=== PATIENT | male | born 1970 ===

== ENCOUNTER 2018-07-24 09:40 | Day surgery (SDC) | payer BC ==
[~2018-07-24 09:40] MED LIST: Acetaminophen TAB* 325 MG PO PRN; Buffered Lidocaine 1% SYRIN* 1 ML/SYRINGE INTRADERM ONE
[2018-07-24] MEDS ORDERED: acetaZOLAMIDE TAB* 250 MG ONE (09:45)
[2018-07-24] MEDS ORDERED: Ketorolac 0.5% OPHTH (NF) 0.5 % 5 ML BTL ONE (09:45)
[2018-07-24] MEDS ORDERED: Proparacaine 0.5% OPHTH.SOL* 15 ML BTL ONE (09:45)
[2018-07-24] MEDS ORDERED: Phenylephrine OPHTH SOL 2.5%* 2 ML ONE (09:45)
[2018-07-24] MEDS ORDERED: Povidone Iodine 5% OPTH* 30 ML BTL ONE (09:45)
[2018-07-24] MEDS ORDERED: Lidocaine 1%* 5 ML VIAL ONE (09:45)
[2018-07-24] MEDS ORDERED: Lidocaine 2% EPI 1:200000 MPF*10-20 ML VIAL ONE (09:45)
[2018-07-24] MEDS ORDERED: Neomycin/Polymy/Dex OPTH.SUSP* MAXITROL 0.1% 5 ML ONE (09:45)
[2018-07-24] MEDS ORDERED: Cyclopentolate 1% OPTH.SOL* 2 ML BTL ONE (09:45)
[2018-07-24] MEDS ORDERED: Midazolam* 1 MG/ML 2 ML VIAL (2 MG) ONE ×2 (12:05→12:54)
[2018-07-24 13:44] VITALS: BP 133/79
--- NOTE | 2018-07-24 19:58 | OP ---
DATE OF OPERATION: 07/24/18 [facility] DATE OF : 72 SURGEON: Antwan Bettencourt M.D. PREOPERATIVE DIAGNOSIS: Cataract, left eye. POSTOPERATIVE DIAGNOSIS: Cataract, left eye. OPERATIVE PROCEDURE: Extracapsular cataract extraction with intraocular lens implant, left eye. DESCRIPTION OF PROCEDURE: The patient was brought to the operating room after being given 1/2% Alcaine with epinephrine drops in the preoperative area. The eye was prepped and draped in the usual sterile fashion. Sterile drape and eyelid speculum were placed. Again, topical 1/2% Alcaine with epinephrine was given. A paracentesis incision was made at the 3 o'clock position with the No.75 blade. Clear cornea incision 2.2 x 2.2-mm was created at the 6 o'clock position starting at the anterior limbus using the 2.2 mm keratome. The anterior chamber was irrigated with 0.4 mL of 1% non-preservative intracameral lidocaine and filled with DisCoVisc. A capsulorrhexis was completed using the cystotome and the Utrata forceps. Hydrodissection was performed with balanced salt solution. The lens nucleus was removed with the Phacoemulsification handpiece without incident. Cortex was removed with the irrigation-aspiration handpiece. The capsular bag was re-inflated using DisCoVisc and an [id number] 15.5 implant was inserted with the shooter, oriented to the 74-degree meridian. All measurements were confirmed with ORA. The irrigation-aspiration handpiece was used to remove all residual DisCoVisc. The eye was refilled with balanced salt solution and the wound checked and found to be watertight. Topical Maxitrol drops were given. [id number]/[facility] #: [id number] [facility]
== END 2018-07-24 13:40 | disposition home or self-care (01) ==
LOC: OREAST 09:40
PROVIDERS: ATTEND Specialist
DX: H25.813 Combined forms of age-related cataract, bilateral (principal); H25.13 Age-related nuclear cataract, bilateral; Z68.38 Body mass index [BMI] 38.0-38.9, adult
CPT/HCPCS: A9270-GY; J2250; V2788

== ENCOUNTER 2018-07-31 06:15 | Day surgery (SDC) | payer BC ==
[2018-07-31] MEDS ORDERED: Midazolam* 1 MG/ML 5 ML VIAL (5 MG) ONE (07:22)
[2018-07-31 08:08] VITALS: BP 141/78
[2018-07-31] MEDS ORDERED: Lidocaine 1%* 5 ML VIAL ONE (08:16)
[2018-07-31] MEDS ORDERED: Povidone Iodine 5% OPTH* 30 ML BTL ONE (08:16)
[2018-07-31] MEDS ORDERED: acetaZOLAMIDE TAB* 250 MG ONE (08:16)
[2018-07-31] MEDS ORDERED: Ketorolac 0.5% OPHTH (NF) 0.5 % 5 ML BTL ONE (08:16)
[2018-07-31] MEDS ORDERED: Phenylephrine OPHTH SOL 2.5%* 2 ML ONE (08:16)
[2018-07-31] MEDS ORDERED: Lidocaine 2% EPI 1:200000 MPF*10-20 ML VIAL ONE (08:16)
[2018-07-31] MEDS ORDERED: Proparacaine 0.5% OPHTH.SOL* 15 ML BTL ONE (08:16)
[2018-07-31] MEDS ORDERED: Neomycin/Polymy/Dex OPTH.SUSP* MAXITROL 0.1% 5 ML ONE (08:16)
[2018-07-31] MEDS ORDERED: Cyclopentolate 1% OPTH.SOL* 2 ML BTL ONE (08:16)
--- NOTE | 2018-07-31 09:30 | OP ---
DATE OF OPERATION: 07/31/18 - [facility] DATE OF : 72 SURGEON: Antwan Bettencourt M.D. PREOPERATIVE DIAGNOSIS: Cataract, right eye. POSTOPERATIVE DIAGNOSIS: Cataract, right eye. OPERATIVE PROCEDURE: Extracapsular cataract extraction with intraocular lens implant, right eye. DESCRIPTION OF PROCEDURE: The patient was brought to the operating room after being given 1/2% Alcaine with epinephrine drops in the preoperative area. The eye was prepped and draped in the usual sterile fashion. Sterile drape and eyelid speculum were placed. Again, topical 1/2% Alcaine with epinephrine was given. A paracentesis incision was made at the 9 o'clock position with the No.75 blade. Clear cornea incision 2.2 x 2.2-mm was created at the 12 o'clock position starting at the anterior limbus using the 2.2-mm keratome. The anterior chamber was irrigated with 0.4 mL of 1% non-preservative intracameral lidocaine and filled with DisCoVisc. A capsulorrhexis was completed using the cystotome and the Utrata forceps. Hydrodissection was performed with balanced salt solution. The lens nucleus was removed with the Phacoemulsification handpiece without incident. Cortex was removed with the irrigation-aspiration handpiece. The capsular bag was re-inflated using DisCoVisc and an [id number] 16.5 implant was inserted with the shooter. All measurements were confirmed with ORA. The irrigation-aspiration handpiece was used to remove all residual DisCoVisc. The eye was refilled with balanced salt solution and the wound checked and found to be watertight. Topical Maxitrol drops were given. [id number]/[facility] #: [id number] [facility]
== END 2018-07-31 08:02 | disposition home or self-care (01) ==
LOC: OREAST 06:15
PROVIDERS: ATTEND Specialist
DX: H25.811 Combined forms of age-related cataract, right eye (principal)
CPT/HCPCS: A9270-GY; J2250; V2788